=== PATIENT | female | born 1935 | race Caucasian/White ===

== ENCOUNTER 2019-05-13 15:56 | Inpatient (IN) | payer MEDICARE, BC ==
[2019-05-13] MEDS ORDERED: SODIUM CHLORIDE 0.9% 500 ML 500 ML IV ONE (16:58)
[2019-05-13] MEDS ORDERED: DILTIAZEM DRIP BOLUS FROM BAG 1 MG SOLN IV ONE (16:59)
[2019-05-13 17:03] LABS: Basophils # (A) 0.2 k/uL (0-0.2); Basophils % (A) 2 %; Eosinophils # (A) 0.2 k/uL (0-0.7); Eosinophils % (A) 2 %; HGB 16.2 gm/dL (11.4-16.0); Lymphocytes # (A) 2.1 k/uL (1.0-4.8); Lymphocytes % (A) 27 %; MCHC 32.4 g/dL (31.0-37.0); MCV 95.7 fL (80.0-100.0); Mean Platelet Volume 6.6; Monocytes # (A) 0.8 k/uL (0-1.0); Monocytes % (A) 10 %; Neutrophils # (A) 4.4 k/uL (1.3-7.7); Neutrophils % (A) 56 %; Platelet Count 339 k/uL (150-450); RBC 5.23 m/uL (3.80-5.40); RDW 12.7 % (11.5-15.5); WBC 7.8 k/uL (3.8-10.6)
[2019-05-13 17:10] LABS: Partial Thromboplastin Time 22.4 sec (22.0-30.0); Prothrombin Time 10.2 sec (9.0-12.0)
[2019-05-13 17:11] LABS: ALT 19 U/L (4-34); AST 31 U/L (14-36); African American GFR (CKD) >90 (>60 ml/min/1.73 sqM); Albumin 4.6 g/dL (3.5-5.0); Alkaline Phosphatase 84 U/L (38-126); Anion Gap 9 mmol/L; Blood Urea Nitrogen 16 mg/dL (7-17); Calcium 10.1 mg/dL (8.4-10.2); Carbon Dioxide 25 mmol/L (22-30); Chloride 107 mmol/L (98-107); Glucose 113 mg/dL (74-99); Non-African American GFR(CKD) 79 (>60 ml/min/1.73 sqM); Potassium 4.2 mmol/L (3.5-5.1); Sodium 141 mmol/L (137-145); Total Bilirubin 0.6 mg/dL (0.2-1.3); Total Protein 8.1 g/dL (6.3-8.2)
--- NOTE | 2019-05-13 17:11 | ED ---
General Adult HPI - General Chief complaint: Arrhythmia/Palpitations Stated complaint: Tachycardia Time Seen by Provider: 05/13/19 16:33 Source: patient, RN notes reviewed, old records reviewed Mode of arrival: wheelchair Limitations: no limitations - History of Present Illness Initial comments: 83-year-old female presents for palpitations, elevated heart rate and elevated blood pressure. Patient was seen by her primary care physician this morning and noted to have elevated blood pressure. She had no specific complaints at this time. No headache. No chest pain. No dyspnea. No abdominal pain. No nausea vomiting. No fever or chills. No cough. It is uncertain if this patient was diagnosed with atrial flutter at this time or if the patient had an elevated heart rate at the time of her office visit. She is presenting today with an elevated heart rate with no history of atrial fibrillation or atrial flutter. She denies any chest pain or dyspnea. She denies fever. She denies vomiting or diarrhea. She has been eating and drinking normally. - Related Data Allergies Allergy/AdvReac Type Severity Reaction Status Date / Time No Known Allergies Allergy Verified 05/13/19 17:04 Review of Systems ROS Statement: Those systems with pertinent positive or pertinent negative responses have been documented in the HPI. ROS Other: All systems not noted in ROS Statement are negative. Past Medical History Past Medical History: Hypertension Additional Past Medical History / Comment(s): deaf in left ear. 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 Absent: tenderness, meningismus Respiratory exam: Present: normal lung sounds bilaterally. Absent: respiratory distress, wheezes Cardiovascular Exam: Present: normal rhythm, tachycardia GI/Abdominal exam: Present: soft. Absent: distended, tenderness Extremities exam: Present: normal inspection, normal capillary refill. Absent: pedal edema, calf tenderness Neurological exam: Present: alert, oriented X3, CN II-XII intact. Absent: motor sensory deficit Psychiatric exam: Present: normal affect, normal mood Skin exam: Present: warm, dry, intact. Absent: cyanosis, diaphoretic Course Vital Signs 05/13/19 05/13/19 16:11 18:04 Temperature 97.9 F Pulse Rate 141 H 96 Respiratory 18 19 Rate Blood Pressure 168/91 183/86 O2 Sat by Pulse 99 98 Oximetry EKG Findings - EKG Comments: EKG Findings:: EKG: Suspect atrial flutter with 21 AV conduction, rate of 143, QRS duration 66, QTC 459. EKG repeated at 1804, showing atrial flutter with variable AV block and a pattern of bigeminy, rate of 96, RI interval 94, QRS duration 64, QTC 457 Medical Decision Making - Medical Decision Making 83-year-old female presenting with palpitations, found to be in a flutter with rapid ventricular response, was given Cardizem and started on heparin. She has no ischemic changes to her EKG per chest chest x-ray showing fibrosis with no other acute findings. Hemoglobin is stable. Electrolytes within normal limits. Initial troponin is negative. Her rate is controlled with Cardizem. She will be admitted for telemetry, cardiology consultation. Case is discussed with Dr. Ribeiro who will accept admission. - Lab Data Result diagrams: 05/13/19 16:49 05/13/19 16:49 Lab Results 05/13/19 05/13/19 05/13/19 Range/Units 16:49 16:49 16:49 WBC 7.8 (3.8-10.6) k/uL RBC 5.23 (3.80-5.40) m/uL Hgb 16.2 H (11.4-16.0) gm/dL Hct 50.0 H (34.0-46.0) % MCV 95.7 (80.0-100.0) fL MCH 31.0 (25.0-35.0) pg MCHC 32.4 (31.0-37.0) g/dL RDW 12.7 (11.5-15.5) % Plt Count 339 (150-450) k/uL Neutrophils % 56 % Lymphocytes % 27 % Monocytes % 10 % Eosinophils % 2 % Basophils % 2 % Neutrophils # 4.4 (1.3-7.7) k/uL Lymphocytes # 2.1 (1.0-4.8) k/uL Monocytes # 0.8 (0-1.0) k/uL Eosinophils # 0.2 (0-0.7) k/uL Basophils # 0.2 (0-0.2) k/uL PT 10.2 (9.0-12.0) sec INR 1.0 (<1.2) APTT 22.4 (22.0-30.0) sec Sodium 141 (137-145) mmol/L Potassium 4.2 (3.5-5.1) mmol/L Chloride 107 (98-107) mmol/L Carbon Dioxide 25 (22-30) mmol/L Anion Gap 9 mmol/L BUN 16 (7-17) mg/dL Creatinine 0.71 (0.52-1.04) mg/dL Est GFR (CKD-EPI)AfAm >90 (>60 ml/min/1.73 sqM) Est GFR (CKD-EPI)NonAf 79 (>60 ml/min/1.73 sqM) Glucose 113 H (74-99) mg/dL Calcium 10.1 (8.4-10.2) mg/dL Magnesium 2.0 (1.6-2.3) mg/dL Total Bilirubin 0.6 (0.2-1.3) mg/dL AST 31 (14-36) U/L ALT 19 (4-34) U/L Alkaline Phosphatase 84 (38-126) U/L Troponin I (0.000-0.034) ng/mL Total Protein 8.1 (6.3-8.2) g/dL Albumin 4.6 (3.5-5.0) g/dL TSH 2.170 (0.465-4.680) mIU/L 05/13/19 Range/Units 16:49 WBC (3.8-10.6) k/uL RBC (3.80-5.40) m/uL Hgb (11.4-16.0) gm/dL Hct (34.0-46.0) % MCV (80.0-100.0) fL MCH (25.0-35.0) pg MCHC (31.0-37.0) g/dL RDW (11.5-15.5) % Plt Count (150-450) k/uL Neutrophils % % Lymphocytes % % Monocytes % % Eosinophils % % Basophils % % Neutrophils # (1.3-7.7) k/uL Lymphocytes # (1.0-4.8) k/uL Monocytes # (0-1.0) k/uL Eosinophils # (0-0.7) k/uL Basophils # (0-0.2) k/uL PT (9.0-12.0) sec INR (<1.2) APTT (22.0-30.0) sec Sodium (137-145) mmol/L Potassium (3.5-5.1) mmol/L Chloride (98-107) mmol/L Carbon Dioxide (22-30) mmol/L Anion Gap mmol/L BUN (7-17) mg/dL Creatinine (0.52-1.04) mg/dL Est GFR (CKD-EPI)AfAm (>60 ml/min/1.73 sqM) Est GFR (CKD-EPI)NonAf (>60 ml/min/1.73 sqM) Glucose (74-99) mg/dL Calcium (8.4-10.2) mg/dL Magnesium (1.6-2.3) mg/dL Total Bilirubin (0.2-1.3) mg/dL AST (14-36) U/L ALT (4-34) U/L Alkaline Phosphatase (38-126) U/L Troponin I <0.012 (0.000-0.034) ng/mL Total Protein (6.3-8.2) g/dL Albumin (3.5-5.0) g/dL TSH (0.465-4.680) mIU/L Critical Care Time Critical Care Time: Yes Total Critical Care Time: 35 Disposition Clinical Impression: Atrial flutter Disposition: ADMITTED IP TO THIS [facility] Condition: Stable Is patient prescribed a controlled substance at d/c from ED?: No Referrals: Gabriela Stack MD [Primary Care Provider] - 1-2 days Decision to Admit Reason: Admit from EC Decision Date: 05/13/19 Decision Time: 18:38
--- NOTE | 2019-05-13 17:16 | XR ---
EXAMINATION TYPE: XR chest 2V DATE OF EXAM: 05/13/2019 COMPARISON: NONE HISTORY: Tachycardia TECHNIQUE: 2 views FINDINGS: Heart is normal in size. There is coarsening of the interstitial markings. There is no obvi ous heart failure. There are chest leads. Costophrenic angles are clear. There is spurring in the tho racic spine. IMPRESSION: Mild pulmonary fibrosis. Normal heart. Atheromatous aorta.
[2019-05-13] MEDS ORDERED: DILTIAZEM 125 MG in SODIUM CHLORIDE 0.9% 100 ML IV SCH (17:30)
[2019-05-13] MEDS ORDERED: HEPARIN SODIUM,PORCINE 5,000 UNIT/ML 1 ML VIAL IV PRN (18:30)
[2019-05-13] MEDS ORDERED: HEPARIN SOD,PORK IN 0.45% NACL 25,000 UNIT in 0.45% NACL 1 250ML.BAG IV SCH (18:30)
[2019-05-13] MEDS ORDERED: HEPARIN SODIUM,PORCINE 5,000 UNIT/ML 1 ML VIAL IV ONE (18:30)
[2019-05-13] MEDS ORDERED: NALOXONE 0.4 MG/ML 1 ML VIAL IV PRN (18:35)
--- NOTE | 2019-05-13 21:44 | P.HPIM ---
History of Present Illness H&P Date: 05/13/19 The patient is an 83-year-old female with a PMH of hypertension, and type 2 diabetes mellitus (diet controlled) who was sent into the ED from her primary care physician's office due to hypertension and tachycardia. The patient's EKG in the emergency room revealed newly diagnosed a flutter. The patient reports that for the past few weeks to months, she has been having occasional palpitations. She however denied having chest pain, shortness of breath, nausea, vomiting, or diaphoresis. She reports that these palpitations have no clear inciting or alleviating factors and are not associated with any additional symptoms. She reports that they're nonexertional. The patient reports that she is otherwise in good health. The patient denied fever, chills, abdominal pain, or dizziness. She underwent an extensive evaluation in the emergency room with an EKG that revealed a flutter with 2:1 conduction at 143 bpm. Laboratory evaluation revealed a troponin of less than 0.012, WBC count of 7.8, hemoglobin of 16.2, platelets 239, sodium 141, potassium 4.2, BUN 16, creatinine 0.71, and a glucose of 113. Review of Systems Pertinent positives and negatives as discussed in HPI, a complete review of systems was performed and all other systems are negative. Past Medical History Past Medical History: Hypertension Additional Past Medical History / Comment(s): deaf in left ear. 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 Past Psychological History: No Psychological Hx Reported Smoking Status: Never smoker Past Alcohol Use History: None Reported Past Drug Use History: None Reported Medications and Allergies Home Medications Medication Instructions Recorded Confirmed Type Lisinopril [Zestril] 20 mg PO DAILY 05/13/19 05/13/19 History Allergies Allergy/AdvReac Type Severity Reaction Status Date / Time No Known Allergies Allergy Verified 05/13/19 18:43 Physical Exam Vitals: Vital Signs Temp Pulse Resp BP Pulse Ox 05/13/19 18:50 96 18 168/93 97 05/13/19 18:04 96 19 183/86 98 05/13/19 16:11 97.9 F 141 H 18 168/91 99 Intake and Output 05/13/19 05/13/19 05/13/19 06:59 14:59 22:59 Other: Weight 91.626 kg General: Elderly female, non toxic, no distress, appears at stated age, obese Derm: no unusual rashes/lesions no unusual ecchymoses, warm, dry Head: atraumatic, normocephalic, symmetric Eyes: EOMI, no lid lag, anicteric sclera, pupils equal round reactive to light ENT: Nose and ears atraumatic, no thrush, no pharyngeal erythema Neck: No thyromegaly, no cervical lymphadenopathy, trachea midline, supple Mouth: no lip lesion, mucus membranes moist Cardiovascular: S1S2 reg, no murmur, positive posterior tibial pulse bilateral, trace LE edema sandeep, capillary refill less than 2 seconds Lungs: CTA bilateral, no rhonchi, no rales , no accessory muscle use Abdominal: soft, nontender to palpation, no guarding, no appreciable organomegaly, normal bowel sounds Ext: no gross muscle atrophy, muscle strength 5 out of 5 in all 4 extremities grossly, no contractures, Neuro: CN II-XI grossly intact, light touch intact all 4 extremities, finger to nose within normal limits, Psych: Alert, oriented, appropriate affect Results CBC & Chem 7: 05/13/19 16:49 05/13/19 16:49 Labs: Abnormal Lab Results - Last 24 Hours (Table) 05/13/19 05/13/19 Range/Units 16:49 16:49 Hgb 16.2 H (11.4-16.0) gm/dL Hct 50.0 H (34.0-46.0) % Glucose 113 H (74-99) mg/dL Assessment and Plan Plan: Newly diagnosed A-flutter -Cardiology consulted -Started on heparin infusion in the ED -Cardizem infusion -Cardiac monitoring -Echocardiogram Chronic conditions: HTN, Type 2 DM -C/w home med Lisinopril -DM is diet controlled DVT prophylaxis -Heparin The patient is admitted with an anticipated less than 2 midnight stay for evaluation of newly diagnosed Aflutter CODE STATUS: Full Code Discussed with: Patient, grand-daughter Anticipated discharge date: 1-[address]: Home A total of 35 minutes was spent on the care of this complex patient more than 50% of the time was spent in counseling and care coordination.
[2019-05-13] MEDS: SODIUM CHLORIDE 0.9% 1,000 ML IV SCH (23:32)
[2019-05-14 04:20] LABS: Appearance,Urine Clear (Clear); Bacteria,Urine Rare /hpf; Bilirubin,Urine Negative (Negative); Blood,Urine Negative (Negative); Color,Urine Yellow; Glucose,Urine (UA) Negative (Negative); Ketones,Urine Negative (Negative); Leukocyte Esterase,Urine Small (Negative); Mucus,Urine Rare /hpf; Nitrite,Urine Negative (Negative); Protein,Urine Negative (Negative); RBC,Urine 2 /hpf (0-5); Specific Gravity,Urine 1.014 (1.001-1.035); Squamous Epithelial Cell,Urine 2 /hpf (0-4); Urobilinogen,Urine <2.0 mg/dL (<2.0); WBC,Urine 10 /hpf (0-5)
[2019-05-14 05:49] LABS: Basophils # (A) 0.1 k/uL (0-0.2); Basophils % (A) 1 %; Eosinophils # (A) 0.1 k/uL (0-0.7); Eosinophils % (A) 2 %; HCT 45.2 % (34.0-46.0); HGB 15.1 gm/dL (11.4-16.0); Lymphocytes # (A) 2.3 k/uL (1.0-4.8); Lymphocytes % (A) 34 %; MCHC 33.4 g/dL (31.0-37.0); MCV 95.8 fL (80.0-100.0); Mean Platelet Volume 6.8; Monocytes # (A) 0.7 k/uL (0-1.0); Monocytes % (A) 10 %; Neutrophils # (A) 3.5 k/uL (1.3-7.7); Neutrophils % (A) 51 %; Platelet Count 288 k/uL (150-450); RBC 4.72 m/uL (3.80-5.40); RDW 12.7 % (11.5-15.5); WBC 6.8 k/uL (3.8-10.6)
[2019-05-14] MEDS: LISINOPRIL 20 MG TAB PO SCH (10:10)
--- NOTE | 2019-05-14 13:00 | ECHOF ---
Referral Reason:New-onset atrial flutter MEASUREMENTS -------- HEIGHT: 132.1 cm WEIGHT: 91.6 kg BP: 131/81 IVSd: 1.3 cm (0.6 - 1.1) LVIDd: 3.6 cm (3.9 - 5.3) LVPWd: 1.2 cm (0.6 - 1.1) IVSs: 1.6 cm LVIDs: 2.6 cm LVPWs: 1.3 cm LA Diam: 3.6 cm (2.7 - 3.8) LAESV Index (A-L): 25.39 ml/m Ao Diam: 3.0 cm (2.0 - 3.7) AV Cusp: 1.4 cm (1.5 - 2.6) MV EXCURSION: 14.230 mm (> 18.000) MV EF SLOPE: 78 mm/s (70 - 150) EPSS: 0.6 cm MV E Remigio: 1.24 m/s MV DecT: 162 ms MV A Remigio: 0.88 m/s MV E/A Ratio: 1.42 RAP: 5.00 mmHg RVSP: 35.14 mmHg FINDINGS -------- Atrial fibrillation. This was a technically adequate study. The left ventricular size is normal. There is mild concentric left ventricular hypertrophy. Overa ll left ventricular systolic function is low-normal with, an EF between 50 - 55 %. The right ventricle is normal in size. The left atrial size is normal. Normal LA size by volume 22+/-6 ml/m2. The right atrial size is normal. There is mild aortic valve sclerosis. There is no evidence of aortic regurgitation. Mild mitral annular calcification present. Mild mitral regurgitation is present. Mild tricuspid regurgitation present. There is mild pulmonary hypertension. The right ventricular systolic pressure, as measured by Doppler, is 35.14mmHg. There is no pulmonic regurgitation present. The aortic root size is normal. There is no pericardial effusion. CONCLUSIONS -------- 1. Atrial fibrillation. 2. This was a technically adequate study. 3. The left ventricular size is normal. 4. There is mild concentric left ventricular hypertrophy. 5. Overall left ventricular systolic function is low-normal with, an EF between 50 - 55 %. 6. The right ventricle is normal in size. 7. The left atrial size is normal. 8. Normal LA size by volume 22+/-6 ml/m2. 9. The right atrial size is normal. 10. There is mild aortic valve sclerosis. 11. Mild mitral annular calcification present. 12. Mild mitral regurgitation is present. 13. Mild tricuspid regurgitation present. 14. There is mild pulmonary hypertension. 15. The right ventricular systolic pressure, as measured by Doppler, is 35.14mmHg. 16. There is no pulmonic regurgitation present. 17. The aortic root size is normal. 18. There is no pericardial effusion. SALES EXHIBITOR: Rosey Turner RDCS
--- NOTE | 2019-05-14 13:42 | P.PN ---
Subjective Progress Note Date: 05/14/19 Principal diagnosis: Patient is seen for new onset A. fib Patient seen and examined She currently feels comfortable sitting down in her chair denies any chest pain or trouble breathing denies any palpitations. We had prolonged discussion she told me about frequent episodes of falling at home over the past couple years old these episodes are due to accidents and tripping. Patient lives alone. She's been having these episodes of chest discomfort and palpitations but didn't think much about it. Patient is supposed to use a walker which she would lie on especially when she leaves the house Objective - Vital Signs Vital signs: Vital Signs Temp 97.6 F 05/14/19 07:45 Pulse 69 05/14/19 07:45 Resp 18 05/14/19 07:45 BP 140/76 05/14/19 07:45 Pulse Ox 97 05/14/19 07:45 Intake & Output 05/13/19 05/14/19 05/14/19 18:59 06:59 18:59 Intake Total 125.839 Output Total 400 Balance -274.161 Weight 91.626 kg 92 kg Intake: Intake, IV Titration 125.839 Amount Heparin Sod,Pork in 0.45% 125.839 NaCl 25,000 unit In 0.45 % NaCl 1 250ml.bag @ 10. 914 UNITS/KG/HR 10 mls/hr IV .Q24H AYALA Rx#: [id number] Output: Urine 400 Other: Voiding Method Toilet # Voids 1 - Exam Constitutional: vital signs stable, Not in acute distress, pleasant, conversant Neck: Supple, no thyromegally, no JVD, no carotid bruits Lungs: Clear to auscultation bilaterally, clear to percussion, normal respiratory effort Cardiovascular: regular heart rate normal s1 s2, no murmurs, no gallops, no rubs, no peripheral edema Extremities: No digital cyanosis, peripheral pulses palpable and equal , no calf muscle tenderness Psych: Alert, oriented to place, person and time, appropriate affect, intact judgment - Labs CBC & Chem 7: 05/14/19 05:26 05/13/19 16:49 Labs: Abnormal Lab Results - Last 24 Hours (Table) 05/13/19 05/13/19 05/13/19 Range/Units 16:49 16:49 23:32 Hgb 16.2 H (11.4-16.0) gm/dL Hct 50.0 H (34.0-46.0) % APTT 34.8 H (22.0-30.0) sec Glucose 113 H (74-99) mg/dL Ur Leukocyte Esterase (Negative) Urine WBC (0-5) /hpf Urine Bacteria (None) /hpf Urine Mucus (None) /hpf 05/14/19 05/14/19 05/14/19 Range/Units 03:57 05:26 11:36 Hgb (11.4-16.0) gm/dL Hct (34.0-46.0) % APTT 76.0 H 80.1 H (22.0-30.0) sec Glucose (74-99) mg/dL Ur Leukocyte Esterase Small H (Negative) Urine WBC 10 H (0-5) /hpf Urine Bacteria Rare H (None) /hpf Urine Mucus Rare H (None) /hpf Assessment and Plan Assessment: 83-year-old female with hypertension well controlled, diabetes type 2 controlled with diet. Comes into the ER from her doctor's office due to tachycardia. Was found to have atrial flutter for which she was admitted for further evaluation and monitoring Plan: New diagnosis of atrial flutter with 2-1 conduction Await cardiology evaluation Currently on Cardizem drip and heparin drip Continue with cardiac monitoring Echocardiogram showed no significant valvular abnormalities, left ventricular EF 5055 percent Chronic conditions Hypertension well controlled continue lisinopril Type 2 diabetes controlled with diet continue with insulin sliding scale while inpatient DVT prophylaxis currently on heparin drip as above Risk of falling PT evaluation. Anticipate discharge within 48 hours, probable the patient will go home with home care
--- NOTE | 2019-05-14 15:19 | P.CRDCN ---
History of Present Illness History of present illness: This is Ly Amador PA-C dictating a consult on this patient The patient was interviewed and examined by me as well as by Dr. Christensen Case discussed with Dr. Christensen and he agrees with the plan of care HPI Patient is an 83-year-old female with a past medical history significant for hypertension and acoustic neuroma status post resection who presented with complaints of palpitations. For the last year or so the patient has had intermittent palpitations which she usually notices after a meal. She takes deep breaths and they resolved after 4-5 breaths. Denies any associated chest pain, shortness of breath, dizziness or syncope. She saw her primary care doctor, Dr. Hardin this morning and when the medical information specialist was taking her vital signs she noted that her heart rate was high and her blood pressure was elevated. Patient states she was prescribed medications for high blood pressure but she hadn't picked them up yet. She went home and ate breakfast and then took a nap. She woke up with her heart" racing". It did not go away and she called her primary care office and was advised to come to the emergency department. She did not have any other symptoms including chest pain, chest pressure, shortness of breath, dizziness or syncope. Upon arrival to the [facility] department her blood pressure was 168/91. EKG revealed an atrial tachycardia with 2 to one conduction. Cardizem was started and repeat EKG showed a rapid atrial tachycardia with a cycle length around 200 ms and variable AV block. Chest x-ray showed mild pulmonary fibrosis. Troponins were negative 3 and TSH with a normal limits. Patient seen and examined in the emergency department. States her palpitations have resolved. Denies any chest pain or shortness of breath. No dizziness. Patient states she may have been diagnosed with diabetes but does not take any medications for it Denies history of heart attack, stroke or heart failure She does have a significant family history of stroke and heart attacks, unsure of the age of onset Denies any history of anemia or bleeding problems ROS: No fevers, chills or rigors, no cough, phlegm or expectoration, no nausea, vomiting or diarrhea, no hematuria, dysuria, no musculoskeletal complaints, no strokes or seizures, no skin lesions. EXAMINATION: Patient is afebrile, pulse in the 70s, respirations 16, blood pressure 115/61, oxygen saturation 94% on room air Patient seen and examined resting in the chair, in no acute distress Lungs are clear to auscultation bilaterally no wheezing or rhonchi or crackles noted Heart is irregular, S1 and S2 heard, no audible murmurs No elevated JVD Trace lower extremity edema bilaterally REVIEW OF LABS, ECG & MEDICAL DATA WBC 6.8, hemoglobin 15.1, platelets 288, potassium 4.2, BUN 16, creatinine 0.71 Troponin negative 3 TSH 2.17 IMPRESSION / ASSESSMENT: New-onset symptomatic atrial tachycardia with RVR, currently in atrial tachycardia with variable AV block, rates in the 70s, chadsvasc score is at least 3 for her age and HTN, she may also have diabetes Hypertension Possible diabetes PLAN: An echocardiogram has been ordered Check hemoglobin A1c Start eliquis 5 mg twice a day for stroke prevention Rate control with metoprolol 25 mg twice a day, wean off Cardizem drip Past Medical History Past Medical History: Hypertension Additional Past Medical History / Comment(s): deaf in left ear. 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 states it was a long time ago. Past Drug Use History: None Reported Medications and Allergies Home Medications Medication Instructions Recorded Confirmed Type Lisinopril [Zestril] 20 mg PO DAILY 05/13/19 05/13/19 History Allergies Allergy/AdvReac Type Severity Reaction Status Date / Time No Known Allergies Allergy Verified 05/13/19 18:43 Physical Exam Vitals: Vital Signs Temp Pulse Pulse Resp BP BP Pulse Ox 05/14/19 12:10 76 16 115/61 94 L 05/14/19 07:45 97.6 F 69 18 140/76 97 05/14/19 04:00 97.9 F 71 16 131/81 94 L 05/13/19 23:52 79 18 05/13/19 23:51 97.6 F 79 18 164/76 98 05/13/19 23:39 97.6 F 79 18 164/76 98 05/13/19 22:31 72 18 05/13/19 22:26 97.7 F 72 18 116/64 97 05/13/19 18:50 96 18 168/93 97 05/13/19 18:04 96 19 183/86 98 05/13/19 16:11 97.9 F 141 H 18 168/91 99 Intake and Output 05/14/19 05/14/19 05/14/19 06:59 14:59 22:59 Intake Total 125.839 Output Total 400 Balance -274.161 Intake: Intake, IV Titration 125.839 Amount Heparin Sod,Pork in 0.45% 125.839 NaCl 25,000 unit In 0.45 % NaCl 1 250ml.bag @ 10. 914 UNITS/KG/HR 10 mls/hr IV .Q24H [facility] Rx#: [id number] Output: Urine 400 Other: Voiding Method Toilet Toilet # Voids 1 1 Weight 92 kg Results 05/14/19 05:26 05/13/19 16:49 Cardiac Enzymes 05/13/19 05/13/19 05/13/19 Range/Units 16:49 16:49 23:32 AST 31 (14-36) U/L Troponin I <0.012 <0.012 (0.000-0.034) ng/mL 05/14/19 Range/Units 05:26 AST (14-36) U/L Troponin I <0.012 (0.000-0.034) ng/mL Coagulation 05/13/19 05/13/19 05/14/19 Range/Units 16:49 23:32 05:26 PT 10.2 (9.0-12.0) sec APTT 22.4 34.8 H 76.0 H (22.0-30.0) sec 05/14/19 Range/Units 11:36 PT (9.0-12.0) sec APTT 80.1 H (22.0-30.0) sec CBC 05/13/19 05/14/19 Range/Units 16:49 05:26 WBC 7.8 6.8 (3.8-10.6) k/uL RBC 5.23 4.72 (3.80-5.40) m/uL Hgb 16.2 H 15.1 (11.4-16.0) gm/dL Hct 50.0 H 45.2 (34.0-46.0) % Plt Count 339 288 (150-450) k/uL Comprehensive Metabolic Panel 05/13/19 Range/Units 16:49 Sodium 141 (137-145) mmol/L Potassium 4.2 (3.5-5.1) mmol/L Chloride 107 (98-107) mmol/L Carbon Dioxide 25 (22-30) mmol/L BUN 16 (7-17) mg/dL Creatinine 0.71 (0.52-1.04) mg/dL Glucose 113 H (74-99) mg/dL Calcium 10.1 (8.4-10.2) mg/dL AST 31 (14-36) U/L ALT 19 (4-34) U/L Alkaline Phosphatase 84 (38-126) U/L Total Protein 8.1 (6.3-8.2) g/dL Albumin 4.6 (3.5-5.0) g/dL Current Medications Generic Name Dose Route Start Last Admin Trade Name Freq PRN Reason Stop Dose Admin Acetaminophen 650 mg 05/13/19 18:35 Tylenol Tab PO Q6HR PRN Mild Pain or Fever > 100.5 Apixaban 5 mg 05/14/19 21:00 Eliquis PO BID AYALA Heparin Sodium (Porcine) 0 unit 05/13/19 18:30 Heparin IV PER PROTOCOL PRN Low PTT Protocol Diltiazem HCl 125 mg/ Sodium 125 mls @ 5 mls/hr 05/13/19 17:30 05/13/19 17:26 Chloride IV 5 mg/hr .Q24H AYALA 5 mls/hr Administration 5 MG/HR Heparin Sodium/Sodium Chloride 250 mls @ 10 mls/hr 05/13/19 18:30 05/14/19 06:06 25,000 unit/ Sodium Chloride IV 11.9 units/kg/hr .Q24H AYALA 10.903 mls/hr Titration Protocol 10.914 UNITS/KG/HR Sodium Chloride 1,000 mls @ 20 mls/hr 05/13/19 18:45 05/13/19 23:32 Saline 0.9% IV Not Given .Q24H [facility] Lisinopril 20 mg 05/14/19 09:00 05/14/19 10:10 Zestril PO 20 mg DAILY AYALA Administration Metoprolol Tartrate 25 mg 05/14/19 21:00 Lopressor PO BID [facility] Naloxone HCl 0.2 mg 05/13/19 18:35 Narcan IV Q2M PRN Opioid Reversal Intake and Output 05/14/19 05/14/19 05/14/19 06:59 14:59 22:59 Intake Total 125.839 Output Total 400 Balance -274.161 Intake: Intake, IV Titration 125.839 Amount Heparin Sod,Pork in 0.45% 125.839 NaCl 25,000 unit In 0.45 % NaCl 1 250ml.bag @ 10. 914 UNITS/KG/HR 10 mls/hr IV .Q24H [facility] Rx#: [id number] Output: Urine 400 Other: Voiding Method Toilet Toilet # Voids 1 1 Weight 92 kg 05/14/19 05:26 05/13/19 16:49
[2019-05-14] MEDS ORDERED: METOPROLOL TARTRATE 25 MG TAB PO STA (16:42)
[2019-05-14] MEDS ORDERED: APIXABAN 5 MG TAB PO ONE (16:43)
[2019-05-14] MEDS: SODIUM CHLORIDE 0.9% 1,000 ML IV SCH (17:23)
[2019-05-14] MEDS: METOPROLOL TARTRATE 25 MG TAB PO SCH (20:31)
[2019-05-14] MEDS: ACETAMINOPHEN TAB 325 MG TAB PO PRN (20:31)
[2019-05-14] MEDS: APIXABAN 5 MG TAB PO SCH (20:31)
[2019-05-15 01:43] LABS: Hemoglobin A1C 5.7 % (4.0-6.0)
[2019-05-15 06:39] LABS: Basophils % (A) 0 %; Eosinophils # (A) 0.2 k/uL (0-0.7); Eosinophils % (A) 3 %; HGB 13.5 gm/dL (11.4-16.0); Lymphocytes # (A) 2.1 k/uL (1.0-4.8); Lymphocytes % (A) 36 %; MCH 31.1 pg (25.0-35.0); MCHC 32.1 g/dL (31.0-37.0); MCV 96.6 fL (80.0-100.0); Mean Platelet Volume 6.7; Monocytes # (A) 0.6 k/uL (0-1.0); Monocytes % (A) 10 %; Neutrophils # (A) 2.8 k/uL (1.3-7.7); Neutrophils % (A) 48 %; Platelet Count 299 k/uL (150-450); RBC 4.35 m/uL (3.80-5.40); RDW 12.7 % (11.5-15.5); WBC 5.8 k/uL (3.8-10.6)
[2019-05-15 06:57] LABS: Calcium 8.7 mg/dL (8.4-10.2); Potassium 3.9 mmol/L (3.5-5.1)
[2019-05-15] MEDS: INSULIN ASPART (NovoLOG) 100 UNIT/ML VIAL SQ SCH ×4 (09:04→20:28)
[2019-05-15] MEDS: METOPROLOL TARTRATE 25 MG TAB PO SCH ×2 (09:08→20:29)
[2019-05-15] MEDS: APIXABAN 5 MG TAB PO SCH ×2 (09:09→20:30)
[2019-05-15] MEDS: LISINOPRIL 20 MG TAB PO SCH (09:09)
--- NOTE | 2019-05-15 16:24 | P.PN ---
Subjective This is Ly Amador PA-C dictating a progress note on this patient The patient was interviewed and examined by me as well as by Dr. Christensen Case discussed with Dr. Christensen and he agrees with the plan of care HPI/interval history Patient is an 83-year-old female with a past medical history significant for hypertension and acoustic neuroma who presented with palpitations. She was found to be in atrial tachycardia with RVR. Yesterday we started her on metoprolol 25 mg twice a day for rate control. Her rates have been in the 70s. Patient seen and examined sitting up in the chair. She is very tired today. She did have some musculoskeletal pain in her shoulders earlier but has resolved. She has been up walking the hallways and was a little bit short of breath with that. No dizziness. No chest pain currently. EXAMINATION Patient is afebrile, pulse in the 70s, respirations 18, blood pressure 130/73, oxygen saturation 97% on room air Patient seen and examined resting in the chair, does not appear to be in any acute distress Lungs clear to auscultation bilaterally Heart is irregular, normal S1 and S2, no audible murmurs No lower extremity edema REVIEW OF LABS, ECG WBC 5.8, hemoglobin 13.5, platelets 299, potassium 3.9, BUN 21, creatinine 0.78 Troponin negative 3 TSH within normal limits A1c 5.7 Echo shows EF 50-55% IMPRESSION / ASSESSMENT: New-onset symptomatic atrial tachycardia with RVR, currently in atrial t achycardia with variable AV block, rates in the 70s, anticoagulation with eliquis Hypertension History of acoustic neuroma PLAN: Continue to monitor telemetry for rate control, monitor telemetry as she is walking make sure her rates remain controlled Continue metoprolol 25 mg by mouth twice a day, may increase further for rate control depending on her rates with exercise Continue lisinopril Continue eliquis for tight coagulation Objective - Vital Signs Vital signs: Vital Signs Temp 96.4 F L 05/15/19 11:50 Pulse 69 05/15/19 14:52 Resp 18 05/15/19 14:52 BP 130/73 05/15/19 11:50 Pulse Ox 97 05/15/19 11:50 Intake & Output 05/14/19 05/15/19 05/15/19 18:59 06:59 18:59 Intake Total 240 600 Output Total 100 Balance 140 600 Weight 91.6 kg Intake: Oral 240 600 Output: Urine 100 Other: Voiding Method Toilet Toilet Toilet # Voids 1 - Labs CBC & Chem 7: 05/15/19 05:53 05/15/19 05:53 Labs: Abnormal Lab Results - Last 24 Hours (Table) 05/15/19 Range/Units 05:53 Sodium 136 L (137-145) mmol/L BUN 21 H (7-17) mg/dL Glucose 101 H (74-99) mg/dL
[2019-05-15 16:51] LABS: Glucose,Whole Blood 112 mg/dL (75-99)
[2019-05-15] MEDS: SODIUM CHLORIDE 0.9% 1,000 ML IV SCH (17:18)
--- NOTE | 2019-05-15 17:18 | P.PN ---
Subjective Progress Note Date: 05/15/19 Principal diagnosis: Patient is seen for new onset A. fib Patient seen and examined patient sitting in chair, tolerating po intake , no chest pain or trouble breathing . no new complaints. she only usses a walker if she would walk long distances Objective - Vital Signs Vital signs: Vital Signs Temp 96.7 F L 05/15/19 16:00 Pulse 71 05/15/19 16:00 Resp 18 05/15/19 16:00 BP 175/85 05/15/19 16:00 Pulse Ox 99 05/15/19 16:00 Intake & Output 05/14/19 05/15/19 05/15/19 18:59 06:59 18:59 Intake Total 240 600 Output Total 100 Balance 140 600 Weight 91.6 kg Intake: Oral 240 600 Output: Urine 100 Other: Voiding Method Toilet Toilet Toilet # Voids 1 - Exam Constitutional: vital signs stable, Not in acute distress, pleasant, conversant Neck: Supple, no thyromegally, no JVD, no carotid bruits Lungs: Clear to auscultation bilaterally, clear to percussion Cardiovascular: regular heart rate normal s1 s2, no murmurs, no gallops, no rubs, no peripheral edema Extremities: No digital cyanosis, peripheral pulses palpable and equal , no calf muscle tenderness Psych: Alert, oriented to place, person and time, appropriate affect, intact judgment - Labs CBC & Chem 7: 05/15/19 05:53 05/15/19 05:53 Labs: Abnormal Lab Results - Last 24 Hours (Table) 05/15/19 05/15/19 Range/Units 05:53 16:37 Sodium 136 L (137-145) mmol/L BUN 21 H (7-17) mg/dL Glucose 101 H (74-99) mg/dL POC Glucose (mg/dL) 112 H (75-99) mg/dL Assessment and Plan Assessment: 83-year-old female with hypertension well controlled, diabetes type 2 controlled with diet. Comes into the ER from her doctor's office due to tachycardia. Was found to have atrial flutter for which she was admitted for further evaluation and monitoring 05/15 continue to monitor closely started on eliquis cardiology adjusted her cardiac meds possible discharge in morning PT evaluation for fall risk assessment encouraged to use the walker Plan: New diagnosis of atrial flutter with variable block cardio following , started on eliquis and metoprolol Continue with cardiac monitoring Echocardiogram showed no significant valvular abnormalities, left ventricular EF 5055 percent Chronic conditions Hypertension well controlled continue lisinopril and metoprolol Type 2 diabetes controlled with diet continue with insulin sliding scale while inpatient, blood sugar well controlled DVT prophylaxis currently on eliquis now for aflutter Risk of falling PT evaluation. Anticipate discharge 05/16, probable the patient will go home with home care
[2019-05-15 20:27] LABS: Glucose,Whole Blood 118 mg/dL (75-99)
[2019-05-15] MEDS: ACETAMINOPHEN TAB 325 MG TAB PO PRN (20:30)
[2019-05-16] MEDS: INSULIN ASPART (NovoLOG) 100 UNIT/ML VIAL SQ SCH ×2 (06:18→12:30)
[2019-05-16 06:21] LABS: Glucose,Whole Blood 103 mg/dL (75-99)
[2019-05-16 06:37] LABS: Basophils # (A) 0.1 k/uL (0-0.2); Basophils % (A) 1 %; Eosinophils # (A) 0.2 k/uL (0-0.7); Eosinophils % (A) 3 %; HCT 45.6 % (34.0-46.0); HGB 14.1 gm/dL (11.4-16.0); Lymphocytes # (A) 2.1 k/uL (1.0-4.8); Lymphocytes % (A) 38 %; MCH 30.4 pg (25.0-35.0); MCHC 30.8 g/dL (31.0-37.0); MCV 98.5 fL (80.0-100.0); Mean Platelet Volume 6.8; Monocytes # (A) 0.6 k/uL (0-1.0); Monocytes % (A) 10 %; Neutrophils # (A) 2.5 k/uL (1.3-7.7); Neutrophils % (A) 45 %; Platelet Count 288 k/uL (150-450); RBC 4.63 m/uL (3.80-5.40); RDW 12.7 % (11.5-15.5); WBC 5.6 k/uL (3.8-10.6)
[2019-05-16 07:01] LABS: African American GFR (CKD) >90 (>60 ml/min/1.73 sqM); Anion Gap 8 mmol/L; Blood Urea Nitrogen 19 mg/dL (7-17); Calcium 9.1 mg/dL (8.4-10.2); Carbon Dioxide 23 mmol/L (22-30); Chloride 110 mmol/L (98-107); Glucose 90 mg/dL (74-99); Non-African American GFR(CKD) 79 (>60 ml/min/1.73 sqM); Potassium 4.6 mmol/L (3.5-5.1); Sodium 141 mmol/L (137-145)
[2019-05-16] MEDS: APIXABAN 5 MG TAB PO SCH (08:21)
[2019-05-16] MEDS: METOPROLOL TARTRATE 25 MG TAB PO SCH (08:21)
[2019-05-16] MEDS: LISINOPRIL 20 MG TAB PO SCH (08:22)
[2019-05-16] MEDS ORDERED: METOPROLOL TARTRATE 25 MG TAB PO STA (09:25)
--- NOTE | 2019-05-16 09:30 | P.PN ---
Subjective This is Ly Amador PA-C dictating a progress note on this patient The patient was interviewed and examined by me as well as by Dr. Christensen Case discussed with Dr. Christensen and he agrees with the plan of care HPI/interval history Patient is an 83-year-old female with a past medical history significant for hypertension and acoustic neuroma who presented with palpitations. She was found to be in atrial tachycardia with RVR. We started her on metoprolol 25 mg twice a day for rate control however her rates get up to the 130s with activity and she is feeling short of breath on exertion. She denies any chest pain. No palpitations. She does complain of shoulder pain and hip pain which she attributes to a fall she had back in February. EXAMINATION Patient is afebrile, pulse in the 70s, respirations 18, blood pressure 138/76, oxygen saturation 95% on room air Patient seen and examined resting in the chair, does not appear to be in any acute distress Lungs clear to auscultation bilaterally Heart is irregular, normal S1 and S2, no audible murmurs No lower extremity edema REVIEW OF LABS, ECG WBC 5.6, hemoglobin 14.1, platelets 288, potassium 4.6, BUN 19, creatinine 0.71 Troponin negative 3 TSH within normal limits A1c 5.7 Echo shows EF 50-55% IMPRESSION / ASSESSMENT: New-onset symptomatic atrial tachycardia with RVR, currently in atrial tachycardia with variable AV block, rates in the 70s, anticoagulation with eliquis Hypertension History of acoustic neuroma PLAN: Increase metoprolol to 50 mg twice a day for rate control Reduce lisinopril to 10 mg daily to avoid hypotension Continue to monitor telemetry Continue anticoagulation with eliquis Objective - Vital Signs Vital signs: Vital Signs Temp 97.9 F 05/16/19 07:55 Pulse 69 05/16/19 07:55 Resp 18 05/16/19 07:55 BP 138/76 05/16/19 07:55 Pulse Ox 95 05/16/19 07:55 Intake & Output 05/15/19 05/16/19 05/16/19 18:59 06:59 18:59 Intake Total 960 Balance 960 Weight 94.1 kg Intake: Oral 960 Other: Voiding Method Toilet Toilet # Voids 3 1 - Labs CBC & Chem 7: 05/16/19 05:58 05/16/19 05:58 Labs: Abnormal Lab Results - Last 24 Hours (Table) 05/15/19 05/15/19 05/16/19 Range/Units 16:37 20:25 05:58 MCHC 30.8 L (31.0-37.0) g/dL Chloride (98-107) mmol/L BUN (7-17) mg/dL POC Glucose (mg/dL) 112 H 118 H (75-99) mg/dL 05/16/19 05/16/19 Range/Units 05:58 06:16 MCHC (31.0-37.0) g/dL Chloride 110 H (98-107) mmol/L BUN 19 H (7-17) mg/dL POC Glucose (mg/dL) 103 H (75-99) mg/dL
--- NOTE | 2019-05-16 10:42 | P.DS ---
Providers Date of admission: 05/15/19 14:38 Attending physician: Danielle Limon MD Consults: 05/13/19 18:36 Consult Physician Routine Consulting Provider: Ирина Castaneda Consult Reason/Comments: New-onset A. fib with RVR Do you want consulting provider notified?: Yes Primary care physician: [facility] Course: Final diagnoses at discharge A flutter with RVR variable block Chronic conditions Hypertension Type 2 diabetes mellitus, controlled by diet, patient A1c is 5.7 Hospital course 83-year-old female with hypertension well controlled, diabetes type 2 controlled with diet. Comes into the ER from her doctor's office due to tachycardia. Was found to have atrial flutter for which she was admitted for further evaluation and monitoring Echocardiogram was done showed that the ejection fraction of 55%. No mitral valve stenosis, no history of valve replacement 05/15 continue to monitor closely started on eliquis cardiology adjusted her cardiac meds possible discharge in morning PT evaluation for fall risk assessment encouraged to use the walker 05/16 Patient continues to do well tolerating Eliquis. Denies any bleeding. At home, patient is ambulatory with no assistive device she takes a walker with her when she goes out in case she would walk long distances but she is minimally dependent on a walker. Patient feels safe going home she understands the risk of bleeding. Patient tolerating by mouth intake, denies any chest pain or trouble breathing prior to discharging the patient , she started reporting , concerns regarding her neck and right hip due to a recent fall. and was complaining of pain when moving her head and standing up. will check xrays prior to discharge. xrays reviewed , no acute fracture , chronic degenerative changes in C spine. on exam of her neck , she has full range of motion , no bruising or swelling. upper extremity , strength 4/5 bilateral upper extremity , no focal sensory deficits to light touch right hip, no swelling no bruising . again patient walked without assistance earlier with no limitations Constitutional: vital signs stable, Not in acute distress, pleasant, conversant , alert and oriented to place time and person Neck: Supple, no thyromegally, no JVD, no carotid bruits Lungs: Clear to auscultation bilaterally, clear to percussion Cardiovascular: regular heart rate normal s1 s2, no murmurs, no gallops, no rubs, no peripheral edema Extremities: No digital cyanosis, peripheral pulses palpable and equal , no calf muscle tenderness Patient to be discharged , cleared by cardiology Medications were adjusted as below Continue with Eliquis Follow-up with cardiology and PCP Discharge home in stable clinical condition 40 minutes were spent discharging this patient, and more than 50% of the time was spent in counseling the patient and family and in coordinating care. Patient Condition at Discharge: Stable Plan - Discharge Summary Discharge Rx Participant: No New Discharge Prescriptions: New Apixaban [Eliquis] 5 mg PO BID #60 tab Metoprolol Tartrate [Lopressor] 50 mg PO BID #60 tab Lisinopril [Zestril] 10 mg PO DAILY #30 tab Discontinued Lisinopril [Zestril] 20 mg PO DAILY Discharge Medication List Apixaban [Eliquis] 5 mg PO BID #60 tab 05/16/19 [Rx] Lisinopril [Zestril] 10 mg PO DAILY #30 tab 05/16/19 [Rx] Metoprolol Tartrate [Lopressor] 50 mg PO BID #60 tab 05/16/19 [Rx] Follow up Appointment(s)/Referral(s): Judah Christensen MD [STAFF PHYSICIAN] - 05/21/19 3:15 pm (Please keep previous follow up appointment. ) Gabriela Stack MD [Primary Care Provider] - 05/22/19 9:45 am () Patient Instructions/Handouts: A-fib (Atrial Fibrillation) (DC), Safe Use of Anticoagulants (DC) Activity/Diet/Wound Care/Special Instructions: pts copay for Eliquis is $400/mo, pts first 30 days is filled for free in pharmacy. pt will need to chart picker free samples at Dr Lewis office. Discharge Disposition: HOME SELF-CARE
[2019-05-16 11:49] VITALS: BP 128/73; PULSE 72; RESP 15; TEMP 97.7
[2019-05-16 12:32] LABS: Glucose,Whole Blood 107 mg/dL (75-99)
--- NOTE | 2019-05-16 14:26 | XR ---
EXAMINATION TYPE: XR cervical spine limited DATE OF EXAM: 05/16/2019 TECHNIQUE: Frontal, lateral, and open mouth view of the cervical spine are obtained. HISTORY: pending discharge, recent fall COMPARISON: None FINDINGS: The cervical spine is visualized in its entirety from C1 thru the top of T1 level. There is retrolisthesis of C3 on C4, grade 1 anterolisthesis of C4 on C5, and more pronounced grade 1 anter olisthesis of C5 on C6 as well as mild anterolisthesis there is also grade one of C6 on C7. Bridging anterior osteophytes are seen of the cervical spine with intervertebral disc space narrowing at multi ple levels, facet arthropathy and uncovertebral hypertrophy. The pre-vertebral soft tissue appears wi thin normal limits. The C1-C2 articulation is within normal limits on the open mouth view IMPRESSION: 1. 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 2. No acute compression deformity seen of the cervical spine.
--- NOTE | 2019-05-16 14:27 | XR ---
EXAMINATION TYPE: XR Hip Limited RT DATE OF EXAM: 05/16/2019 CLINICAL HISTORY: Right hip pain after recent fall TECHNIQUE: AP view of the right hip are obtained. COMPARISON: None. FINDINGS: The exam is suboptimal given patient body habitus. There is no acute fracture/dislocation e vident in the right hip. The joint space in the right hip appears aligned but narrowed in both the c ephalad and medial directions. The overlying soft tissue appears unremarkable. IMPRESSION: No acute fracture of the right hip evident on this single view although slightly limited by patient body habitus.
[2019-05-16] MEDS ORDERED: METOPROLOL TARTRATE 50 MG TAB PO SCH (21:00)
[2019-05-17] MEDS ORDERED: LISINOPRIL 10 MG TAB PO SCH (09:00)
--- NOTE | 2019-05-22 08:01 | CDI ---
atDocumentation Clarification Form Date: 05/22/19 From: Neema Mcpherson Phone: If you have a question about this query, please contact Danielle Sebastian Side Laster at [phone] between 8am and 5pm. Admit Date: 05/15/19 Discharge Date: 05/16/19 Patient Name: Eunice Ireland Visit Number: [id number] ATTENTION: The Clinical Documentation Specialists (CDI) and [facility] Coding Staff appreciate your assistance in clarifying documentation. Please respond to the clarification below the line at the bottom and electronically sign. The CDI & [facility] Coding staff will review the response and follow-up if needed. Please note: Queries are made part of the Legal Health Record. If you have any questions, please contact the author of this message via ITS. Dear Dr. Limon Conflicting documentation has been found in the medical record: Newly diagnosed atrial flutter is documented in the ED note, H&P, discharge summary and your progress notes. New onset A.fib is documented in your progress notes. Cardiology documented that the patient has new onset symptomatic atrial tachycardia in their progress notes. History/Risk Factors: Hypertension, diabetes Clinical Indicators: Palpitations EKG: In the ED showing atrial flutter with 2:1 conduction at 143 bpm, repeat EKG showed a rapid atrial tachycardia with a cycle length around 200 ms and variable AV block Treatment: IV Cardizem In your opinion, what is the most clinically appropriate diagnosis for this patient? Atrial tachycardia Atrial fibrillation(please specify type) - Chronic Persistent - Paroxysmal - Permanent - Persistent - Other - Unable to determine Atrial Flutter - Atypical - Type I - Type II - Typical - Other - Unable to determine Other explanation of clinical findings Unable to determine (no explanation for clinical findings) atrial flutter , unable to determine MTDD
== END 2019-05-16 17:56 | disposition home or self-care (01) | DRG 310 ==
LOC: EC 15:56 → 3SCARD 18:36 → OBSVTOIN 05-15 14:38
PROVIDERS: ADMIT Internal Medicine; ATTEND Internal Medicine
DX: I48.92 Unspecified atrial flutter (principal); J84.10 Pulmonary fibrosis, unspecified; E11.9 Type 2 diabetes mellitus without complications; H91.92 Unspecified hearing loss, left ear; I10 Essential (primary) hypertension; I44.30 Unspecified atrioventricular block; M25.519 Pain in unspecified shoulder; M25.559 Pain in unspecified hip; Z79.899 Other long term (current) drug therapy; Z87.891 Personal history of nicotine dependence; Z85.89 Personal history of malignant neoplasm of other organs and systems
CPT/HCPCS: 36415; 71046; 72040; 73501; 80048; 80053; 81001; 83036; 83735; 84439; 84443; 84484; 85025; 85610; 85730; 93005; 93306; 96365; 96366; 96368; 96376; 99291

== ENCOUNTER → 2023-10-15 | Outpatient (CLI) | payer MEDICARE, BC ==
--- NOTE | 2023-10-15 15:35 | US ---
EXAMINATION TYPE: US venous doppler duplex LE RT DATE OF EXAM: 10/15/2023 3:12 PM COMPARISON: NONE CLINICAL INDICATION: Female, 87 years old with history of M79.661 PAIN IN RIGHT LOWER LEG; Pain per o rder. Patient has had swelling x 1 day. SIDE PERFORMED: Right TECHNIQUE: The lower extremity deep venous system is examined utilizing real time linear array sonog lenard with graded compression, doppler sonography and color-flow sonography. VESSELS IMAGED: Common Femoral Vein Deep Femoral Vein Greater Saphenous Vein * Femoral Vein Popliteal Vein Small Saphenous Vein * Proximal Calf Veins (* superficial vessels) Right Leg: No evidence of DVT. IMPRESSION:
== END | disposition home or self-care (01) ==
LOC: RADUSWWP 14:51
PROVIDERS: ATTEND Family Medicine
DX: M79.661 Pain in right lower leg (principal)

== ENCOUNTER 2023-11-25 11:23 | Emergency (ER) | payer MEDICARE, BC ==
[2023-11-25] MEDS ORDERED: SODIUM CHLORIDE 0.9% 500 ML BAG ONE (12:05)
[2023-11-25] MEDS ORDERED: COLCHICINE 0.6 MG EACH ONE ×2 (12:05)
[2023-11-25] MEDS ORDERED: KETOROLAC 15 MG/ML 1 ML VIAL ONE (12:11)
== END 2023-11-25 15:02 | disposition home or self-care (01) ==
LOC: EC 11:23
CPT/HCPCS: 96360; 99283